=== PATIENT | male | born 2000 | race Caucasian/White ===

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

== ENCOUNTER 2019-02-05 20:06 | Emergency (ER) | payer BC, MEDICAID ==
--- NOTE | 2019-02-05 20:37 | EDM.PDOC ---
ED HPI GENERAL MEDICAL PROBLEM - General Chief Complaint: Skin Complaint Stated Complaint: BLOTCHES ON TORSO Time Seen by Provider: 02/05/19 20:20 Source of Information: Reports: Patient History Limitations: Reports: No Limitations - History of Present Illness INITIAL COMMENTS - FREE TEXT/NARRATIVE: 18-year-old male with a history of "staph infections" was out fishing with some friends with they noticed some blotches on his torso and abdomen. They are asymptomatic, there were a lot of horseflies and mosquitoes but he doesn't remember getting bit. He has no fever or chills, joint pains or any other symptoms. He did not notice any problems this morning with a previous several days. Onset: Unknown/Unsure Location: Reports: Chest, Abdomen, Back, Upper Extremity, Left Associated Symptoms: Reports: No Other Symptoms - Related Data Allergies Allergy/AdvReac Type Severity Reaction Status Date / Time No Known Allergies Allergy Verified 02/05/19 20:21 Home Meds: Home Meds NK [No Known Home Meds] 02/05/19 [History] Past Medical History - Past Health History Medical/Surgical History: Denies Medical/Surgical History Psychiatric History: Reports: ADHD Dermatologic History: Reports: Cellulitis, Other (See Below) Other Dermatologic History: hx of MRSA - Infectious Disease History Infectious Disease History: Reports: MRSA Social & Family History - Tobacco Use Tobacco Use Comment: vapes - Caffeine Use Caffeine Use: Reports: Coffee, Energy Drinks, Soda Other Caffeine Use: occasional - Recreational Drug Use Recreational Drug Use: No - Living Situation & Occupation Living situation: Reports: Single, with Family Occupation: Student (lives with family, attending high school, senior.) ED ROS GENERAL - Review of Systems Review Of Systems: See Below Constitutional: Denies: Fever, Chills HEENT: Reports: No Symptoms Respiratory: Denies: Shortness of Breath, Wheezing Cardiovascular: Denies: Chest Pain GI/Abdominal: Denies: Nausea, Vomiting Neurological: Denies: Headache ED EXAM, SKIN/RASH Exam: See Below Exam Limited By: No Limitations General Appearance: Alert, No Apparent Distress Respiratory/Chest: No Respiratory Distress, Lungs Clear Neurological: Alert, Oriented Skin: Other (Patient has several oval shaped irregular erythematous macular lesions with slight increased redness around the ring, and also a small hive- like lesion in the center typical of a bite. He's had several on his lower abdomen, one in his lower back and one on his left arm. They are blanching.) Course - Vital Signs Last Recorded V/S: Last Vital Signs Temp 98.2 F 02/05/19 20:21 Pulse 111 H 02/05/19 20:21 Resp 18 02/05/19 20:21 BP 132/79 02/05/19 20:21 Pulse Ox 97 02/05/19 20:21 - Re-Assessments/Exams Free Text/Narrative Re-Assessment/Exam: 02/05/19 20:35 Patient was reassured these are not staph infection but are more typical of insect bites. Encouraged him to give these a couple of days, oral antihistamines may be helpful and if not improving have them rechecked in 2-3 days. Departure - Departure Time of Disposition: 20:55 Disposition: Home, Self-Care 01 Clinical Impression: Insect bites Qualifiers: Encounter type: initial encounter Site of insect bite: upper arm Laterality: left Qualified Code(s): S40.862A - Insect bite (nonvenomous) of left upper arm, initial encounter Insect bites and stings Qualifiers: Encounter type: initial encounter Qualified Code(s): W57.XXXA - Bitten or stung by nonvenomous insect and other nonvenomous arthropods, initial encounter - Discharge Information Instructions: Insect Bite, Adult, [id number] Referrals: PCP,None [Primary Care Provider] - Forms: ED Department Discharge Care Plan Goals: An oral antihistamine may be beneficial, cool compresses to the bites or topical hydrocortisone may also be helpful. Return or recheck anytime in the next several days if worsening
== END 2019-02-05 20:55 | disposition home or self-care (01) ==
LOC: JP.ED 20:06
DX: S40.862A Insect bite (nonvenomous) of left upper arm, initial encounter (principal); W57.XXXA Bitten or stung by nonvenomous insect and other nonvenomous arthropods, initial encounter
CPT/HCPCS: 99282